=== PATIENT | female | born 2000 | race Caucasian/White ===

== ENCOUNTER 2022-08-16 14:34 | Outpatient (CLI) | payer BC, OTHER, SELFPAY ==
--- NOTE | ~2022-08-16 | US_ITS ---
EXAMINATION: US OB /maternal detail DATE: 08/16/2022 15:51 INDICATION: Second trimester anatomic survey TECHNIQUE: Real-time ultrasound of the pelvis was performed. COMPARISON: None. FINDINGS: There is a single living fetus in breech presentation. The placenta is posterior. heart rate is 157 beats per minute (bpm). cardiac activity and movement are noted. The amniotic fluid index is subjectively normal. The following anatomy was identified as normal: 4 chamber heart 3 vessel cord cord insertion kidneys urinary bladder stomach spine diaphragm ventricles cisterna magna cerebellum The following biometric data were obtained: Biparietal diameter (BPD): 4.1 cm; head circumference (HC): 14.6 cm; abdominal circumference (AC): 13 .4 cm; femur length (FL): 2.7 cm. These measurements are concordant. Estimated weight is 241 g +/- 36 g, which correlates with the 31st percentile when 01/12/2023 is used as estimated date of delivery. As single measurements, these parameters are each equal to the following estimated gestational ages w ith ranges of +/- 2 standard deviations: BPD: 18 weeks 3 days +/- 1 weeks 5 days. HC: 17 weeks 6 days +/- 1 weeks 1 days. AC: 18 weeks 6 days +/- 2 weeks 0 days. FL: 18 weeks 1 days +/- 1 weeks 3 days. estimated gestational age based solely on measurements from this exam is 18 weeks 2 days +/- 1 weeks 2 days. IMPRESSION: 1. Single living fetus in breech presentation. 2. Estimated weight is 241 g +/- 36 g, which correlates with the 31st percentile when 01/12/2023 is used as estimated date of delivery. Reviewed, dictated and finalized at location A. [facility] [employer] IMPRESSION: 1. Single living fetus in breech presentation. 2. Estimated weight is 241 g +/- 36 g, which correlates with the 31st per centile when 01/12/2023 is used as estimated date of delivery.
== END 2022-08-16 14:35 | disposition home or self-care (01) ==
PROVIDERS: PCP Nurse Practitioner Family; Visit Provider Obstetrics & Gynecology Gynecologic Oncology
DX: Z36.9 Encounter for antenatal screening, unspecified (principal)
CPT/HCPCS: 76805